=== PATIENT | male | born 2000 | race Caucasian/White ===

== ENCOUNTER → 2023-03-24 | Outpatient (REF) | payer MEDICARE, BC, SELFPAY | LOC: DHSLP | PROVIDERS: ATTENDING PHYSICIAN Internal Medicine | DX: G47.30 Sleep apnea, unspecified (principal); R06.83 Snoring | CPT/HCPCS: 95800 ==

== ENCOUNTER 2023-12-08 10:52 | Emergency (ER) | payer BC, MEDICARE, SELFPAY ==
[2023-12-08 11:13] VITALS: BP 156/87
[2023-12-08 11:20] VITALS: BMI 32.5
--- NOTE | 2023-12-08 11:31 | ED.GENMED ---
History of Present Illness
General
Chief Complaint: Headache
Source: patient
Time Seen by Provider: 12/08/23 11:22
History of Present Illness
History of Present Illness:
23-year-old male with past medical history of autism, presenting to the emergency department for evaluation asthma, hypertension of right-sided temporal headache x 2 weeks, waxing and waning during the 2 weeks, today seemed a little bit worse
prompting him to come to the ER for further evaluation. States he last took ibuprofen a few days ago which did not help. Denies any fevers or URI like symptoms, visual disturbances, focal weakness or numbness or any henderson. Family history is
noncontributory for any acute neurologic events, brain masses or malignancies. He has no other concerns. 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
Past History
Past History
ED Past Medical History: Asthma, HTN and Other (Autism)
ED Past Surgical History: None
Social History
Tobacco: Non-smoker
Alcohol: None
Drug: None
Personal: Single
Living: with family
Employment: Employed
Review of Systems
Review of Systems
All Other Systems: ROS reviewed and negative except as documented in HPI and ROS
Phy Exam
Physical Exam
Physical Exam:
GENERAL: Alert , in no apparent distress
EYE: conjunctiva clear, pupils 4 mm bilateral
Head: Normocephalic atraumatic, no focal temporal artery tenderness
NECK: Supple,
ENT: mmm.
LUNGS: no acute respiratory distress, clear to auscultation
Heart: Regular rate and rhythm
NEUROLOGICAL: Alert and oriented
SKIN: Warm and dry, skin intact.
MUSCULOSKELETAL: well perfused.
PSYCH: Normal and appropriate interaction.
Scores
Heart Failure Risk
Heart Failure Risk Score: Not Applicable
Heart Score for Chest Pain Patients
STEMI patient?: Not applicable
Withdrawal Assessment of Alcohol
Withdrawal Assessment Completed?: Not applicable
Course
Orders/Labs/Results
Orders:
Orders
12/08/23 11:29
CT Head W/o Iv Contrast Urgent
Comment:
Reason For Exam: right sided temporal headache x 2 weeks
Dexamethasone Sod Phosphate [Decadron] 10 mg IV NOW STA
Ketorolac [Toradol] 30 mg IV NOW STA
Vital Signs
Initial and Last Documented VS:
Initial Vital Signs
Temp Pulse Resp BP Pulse Ox
98.4 F 103 18 156/87 96
12/08/23 11:13 12/08/23 11:13 12/08/23 11:13 12/08/23 11:13 12/08/23 11:13
Last Documented Vital Signs
Temp Pulse Resp BP Pulse Ox
98.4 F 103 18 156/87 96
12/08/23 11:13 12/08/23 11:13 12/08/23 11:13 12/08/23 11:13 12/08/23 11:13
MDM/Problems Addressed
Differential Diagnosis Includes:
Tension headache, migraine headache, less concern for intracranial bleed or malignancy, I did also consider giant cell arteritis however given age and symptoms I am not suspicious for this as a diagnosis
MDM/Problems Addressed:
23-year-old male presenting emergency department for evaluation of the right headache x 2 weeks. Slightly worse today prompting him to come to the ER. Did not take anything for pain today. Overall there is no acute neurologic system patient is
otherwise well-appearing. Patient was hoping for a CT scan to ensure no acute intracranial pathologies which I do think is reasonable. Will also treat with Toradol and Decadron. Reassessment following.
*Radiology
Radiology exam reviewed: radiology read reviewed
*Pulse Oximetry
Patient hypoxic: no
*Critical Care Note
Total Time (30-74mins, 75-104mins- exclusive of procedures): Not Applicable
Patient Management
Escalation/DeEscalation of care consider admission/obs:
Patients CT scan without any acute pathologies. Headache improved with medications. Stable for discharge home and aware of return precautions to the ER
ED Attending Note
-
Portions of this chart may have been created with voice recognition software.� Occasional wrong word or��sound alike� substitutions may have occurred due to the inherent limitations of voice recognition software.
Discharge Plan
Departure
Patient Disposition: Home (Routine Discharge)
Date of Disposition: 12/08/23
Time of Disposition: 12:34
Patient with high blood pressure during this ER visit?: Yes
Discharge Problem:
Headache
Instructions: Headache, Adult (DC)
Prescriptions:
No Action
lamotrigine [Lamictal] 150 mg Tablet
150 mg PO DAILY
quetiapine [Seroquel] 300 mg Tablet
300 mg PO HS
Izabella 60 mg Capsule
180 mg PO DAILY
clonidine HCl 0.2 mg Tablet
0.2 mg PO HS
budesonide-formoterol [Symbicort] 160-4.5 mcg/actuation Hfa Aerosol Inhaler
1 puff INHALATION ONCE
Referrals:
Alejandra Bauer MD [Family Provider] -
Interventions
Interventions:
*Risk Screen - Suicide Last Done: 12/08/23 11:13
*General Assessment Last Done: 12/08/23 11:13
*Neglect/Abuse Screening Last Done: 12/08/23 11:13
ED- Fall Risk Assessment Last Done: 12/08/23 11:25
*Nursing Disposition Last Done: 12/08/23 12:38
ED- Neurological Assessment Last Done: 12/08/23 11:20
Discharge Date and Time
Discharge Date/Time: 12/08/23 12:39
Print Language: AUSTRALIAN
[2023-12-08] MEDS: DECADRON 10 MG IV (11:41)
[2023-12-08] MEDS: TORADOL 30 MG IV (11:41)
== END 2023-12-08 12:39 | disposition home or self-care (01) ==
LOC: EMR 10:52
PROVIDERS: EMERGENCY PHYSICIAN Emergency Medicine; FAMILY PHYSICIAN Internal Medicine
DX: R51.9 Headache, unspecified (principal); F84.0 Autistic disorder; J45.909 Unspecified asthma, uncomplicated; I10 Essential (primary) hypertension
CPT/HCPCS: 99284; 96374; 96375; 70450

== ENCOUNTER → 2023-12-28 16:27 | Outpatient (REF) | payer BC, MEDICARE, SELFPAY | LOC: RAD 16:27 | PROVIDERS: ATTENDING PHYSICIAN Internal Medicine | DX: M54.2 Cervicalgia (principal) | CPT/HCPCS: 72040 ==

== ENCOUNTER → 2024-04-21 16:37 | Outpatient (REF) | payer BC, MEDICARE, SELFPAY ==
[2024-04-21 17:08] LABS: % Basophils 0.7 % (0-2); % Eosinophils 2.8 % (0-6); % Immature Granulocytes 0.5 % (0-0.5); % Lymphocytes 25.3 % (20.5-51.1); % Monocytes 7.9 % (1.7-9.3); % Neutrophils 62.8 % (42.2-75.2); Absolute Basophils 0.1 10^3/uL (0-0.2); Absolute Eosinophils 0.4 10^3/uL (0-0.7); Absolute Immature Granulocytes 0.1 10^3/uL (0-0.05); Absolute Lymphocytes 3.4 10^3/uL (1.2-3.4); Absolute Monocytes 1.1 10^3/uL (0.1-0.6); Absolute Neutrophils 8.5 10^3/uL (1.4-6.5); Hematocrit 46.3 % (39.0-52.0); Hemoglobin 15.9 g/dL (13.0-18.0); Mean Corp Hgb Conc. 34.3 g/dL (33.0-37.0); Mean Corpuscular Volume 87.4 fL (80.0-94.0); Mean Platelet Volume 10.4 fL (7.4-10.4); Nucleated Red Blood Cells % 0 % (-); Platelet Count 347 10^3/uL (130-400); Red Cell Dist. Width 12.7 % (11.5-14.5); White Blood Cell Count 13.5 10^3/uL (4.8-10.8)
[2024-04-21 17:20] LABS: ALT (SGPT) 30 U/L (0-50); AST (SGOT) 26 U/L (17-59); Alkaline Phosphatase 91 U/L (38-126); Blood Urea Nitrogen 18 mg/dl (9-20); Carbon Dioxide 27 mmol/L (22-30); Chloride 99 mmol/L (98-107); Glucose 86 mg/dl (70-99); Potassium 4.8 mmol/L (3.5-5.1); Sodium 141 mmol/L (135-145); Total Bilirubin 0.2 mg/dl (0.2-1.3); Total Protein 7.6 g/dl (6.3-8.2); eGFR > 60.00
[2024-04-21 17:53] LABS: Monotest Positive (Negative)
== END ==
LOC: REG 16:37
PROVIDERS: ATTENDING PHYSICIAN Hospitalist
DX: B34.9 Viral infection, unspecified (principal)
CPT/HCPCS: 36415; 80053; 85025; 86308; 87502

== ENCOUNTER 2024-05-10 11:02 | Inpatient (IN) | payer BC, MEDICARE, SELFPAY ==
[2024-05-10 00:53] VITALS: BP 152/97
[2024-05-10] MEDS: ZOFRAN ODT (ORALLY DISINTEGRATING) 4 MG PO (01:04)
[2024-05-10 01:41] LABS: Hematocrit 47.4 % (39.0-52.0); Hemoglobin 16.1 g/dL (13.0-18.0); Mean Corpuscular Hgb 29.1 pg (27.0-31.0); Mean Corpuscular Volume 85.6 fL (80.0-94.0); Mean Platelet Volume 9.9 fL (7.4-10.4); Platelet Count 351 10^3/uL (130-400); Red Blood Cell Count 5.54 10^6/uL (4.70-6.10); Red Cell Dist. Width 12.8 % (11.5-14.5); White Blood Cell Count 28.1 10^3/uL (4.8-10.8)
[2024-05-10 01:49] LABS: ALT (SGPT) 29 U/L (0-50); AST (SGOT) 24 U/L (17-59); Albumin 5.1 g/dl (3.5-5.0); Alkaline Phosphatase 88 U/L (38-126); Blood Urea Nitrogen 18 mg/dl (9-20); Calcium 9.8 mg/dl (8.4-10.2); Carbon Dioxide 20 mmol/L (22-30); Chloride 105 mmol/L (98-107); Glucose 141 mg/dl (70-99); Potassium 4.2 mmol/L (3.5-5.1); Sodium 142 mmol/L (135-145); Total Bilirubin 0.9 mg/dl (0.2-1.3); Total Protein 7.8 g/dl (6.3-8.2); eGFR > 60.00
[2024-05-10 02:24] LABS: % Basophils 0.2 % (0-2); % Eosinophils 0.1 % (0-6); % Immature Granulocytes 0.7 % (0-0.5); % Lymphocytes 2.2 % (20.5-51.1); % Monocytes 6.6 % (1.7-9.3); % Neutrophils 90.2 % (42.2-75.2); Absolute Basophils 0.1 10^3/uL (0-0.2); Absolute Immature Granulocytes 0.2 10^3/uL (0-0.05); Absolute Lymphocytes 0.6 10^3/uL (1.2-3.4); Absolute Monocytes 1.9 10^3/uL (0.1-0.6); Absolute Neutrophils 25.3 10^3/uL (1.4-6.5); Nucleated Red Blood Cells % 0 % (-)
[2024-05-10 03:06] VITALS: BMI 32.9
--- NOTE | 2024-05-10 04:04 | ED.GENMED ---
History of Present Illness
<JUVENTINO Esqueda - Last Filed: 05/10/24 04:18>
General
Chief Complaint: Abdominal Symptoms
Source: patient
Time Seen by Provider: 05/10/24 04:01
Nursing documentation reviewed up to this point in time: agreed with
History of Present Illness
History of Present Illness:
Pt is a 23 yo M who presents to the emergency department for N/V/D and abdominal pain x 4-5 hours. Pt states that the symptoms began suddenly. He states that he has been unable to keep any liquid or food down since the symptoms began. He states that
the abdominal pain is located across the middle of his stomach and that it is sharp and non-radiating. Pt also admits to having a mild headache in the front of his head that is worse when he has vomiting episodes. Pt reports having chills and
feeling hot, he states that his temperature at home was normal. Pt states that he took ibuprofen before coming to the ED. He states that it helped when he took it but the pain is there when the medicine wore off. Pt denies fever, shortness of
breath, hematemesis, hematochezia, cough.
Pt states that 2 days ago he was around someone with the norovirus.
Past History
<JUVENTINO Esqueda - Last Filed: 05/10/24 04:18>
Past History
ED Past Medical History: Asthma, HTN and Other (Autism)
ED Past Surgical History: None
Social History
Tobacco: Non-smoker
Alcohol: None
Drug: None
Personal: Single
Living: with family
Employment: Employed
Review of Systems
<JUVENTINO Esqueda - Last Filed: 05/10/24 04:18>
Review of Systems
Allergies reviewed?: Yes
Constitutional: Reports chills
EENT: Reports no symptoms
Respiratory: Reports no symptoms
Cardiac: Reports no symptoms
ABD/GI: Reports abdominal pain, nausea, vomiting and diarrhea
: Reports no symptoms
Neurological: Reports headache
Phy Exam
<Sona Duncan [facility] [[email or web address]] - Last Filed: 05/10/24 04:18>
General Physical Exam
General Presentation: well appearing and no apparent distress
General age: appears stated age
General Skin: warm
General Habitus: normal
General Mental: alert
General Hydration: appears well hydrated
Cardiovascular Exam
Cardiovascular Exam: regular rate/rhythm
Pulmonary Exam
Pulmonary Exam: lungs clear
Gastrointestinal Exam
Gastrointestinal Exam: normal bowel sounds, soft and non distended
Palpation: left upper quadrant: Minimal tenderness, left lower quadrant: Minimal tenderness, right upper quadrant: Minimal tenderness and right lower quadrant: Minimal tenderness
Course
<Sona Duncan [facility] [[email or web address]] - Last Filed: 05/10/24 04:18>
Orders/Labs/Results
Orders:
Orders
05/10/24 01:02
Ondansetron Orally Disint [Zofran Odt (Orally Disintegrating)] 4 mg .ROUTE .STK-MED ONE
05/10/24 01:04
Ondansetron Orally Disint [Zofran Odt (Orally Disintegrating)] 4 mg PO NOW STA
05/10/24 01:24
CBC/With Diff [Complete Blood Count/With Diff] Urgent
CMP [Comprehensive Metabolic Panel] Urgent
05/10/24 04:36
0.9% Sodium Chloride 1000 ml [Nss] 1,000 ml IV BOLUS
Ondansetron Injectable [Zofran] 4 mg IV NOW STA
05/10/24 04:56
0.9% Sodium Chloride 1000 ml [Nss] 1,000 ml IV BOLUS
Ondansetron Injectable [Zofran] 4 mg IV NOW STA
05/10/24 04:57
Norovirus by PCR Urgent
RUPALI Source: Feces/Stool
Specimen Description:
05/10/24 05:06
Electrocardiogram (*1) Urgent
Reason for Study: Chest Pain
EKG- Treatment ONCE
Abnormal Lab Results
05/10/24
01:24
WBC 28.1 H 10^3/uL
(4.8-10.8)
Abs Immat Gran (auto) 0.2 H 10^3/uL
(0-0.05)
Absolute Neuts (auto) 25.3 H 10^3/uL
(1.4-6.5)
Absolute Lymphs (auto) 0.6 L 10^3/uL
(1.2-3.4)
Absolute Monos (auto) 1.9 H 10^3/uL
(0.1-0.6)
Immature Gran % 0.7 H %
(0-0.5)
Neutrophils % 90.2 H %
(42.2-75.2)
Lymphocytes % 2.2 L %
(20.5-51.1)
Carbon Dioxide 20 L mmol/L
(22-30)
Glucose 141 H mg/dl
(70-99)
Albumin 5.1 H g/dl
(3.5-5.0)
05/10/24 01:24
05/10/24 01:24
Vital Signs
Initial and Last Documented VS:
Initial Vital Signs
Temp Pulse Resp BP Pulse Ox
98.9 F 117 18 152/97 96
05/10/24 00:53 05/10/24 00:53 05/10/24 00:53 05/10/24 00:53 05/10/24 00:53
Last Documented Vital Signs
Temp Pulse Resp BP Pulse Ox
98.9 F 117 18 152/97 96
05/10/24 00:53 05/10/24 00:53 05/10/24 00:53 05/10/24 00:53 05/10/24 00:53
<Rashel Méndez, DO - Last Filed: 05/10/24 05:08>
Orders/Labs/Results
Orders:
Orders
05/10/24 01:02
Ondansetron Orally Disint [Zofran Odt (Orally Disintegrating)] 4 mg .ROUTE .STK-MED ONE
05/10/24 01:04
Ondansetron Orally Disint [Zofran Odt (Orally Disintegrating)] 4 mg PO NOW STA
05/10/24 01:24
CBC/With Diff [Complete Blood Count/With Diff] Urgent
CMP [Comprehensive Metabolic Panel] Urgent
05/10/24 04:36
0.9% Sodium Chloride 1000 ml [Nss] 1,000 ml IV BOLUS
Ondansetron Injectable [Zofran] 4 mg IV NOW STA
05/10/24 04:56
0.9% Sodium Chloride 1000 ml [Nss] 1,000 ml IV BOLUS
Ondansetron Injectable [Zofran] 4 mg IV NOW STA
05/10/24 04:57
Norovirus by PCR Urgent
RUPALI Source: Feces/Stool
Specimen Description:
05/10/24 05:06
Electrocardiogram (*1) Urgent
Reason for Study: Chest Pain
EKG- Treatment ONCE
Abnormal Lab Results
05/10/24
01:24
WBC 28.1 H 10^3/uL
(4.8-10.8)
Abs Immat Gran (auto) 0.2 H 10^3/uL
(0-0.05)
Absolute Neuts (auto) 25.3 H 10^3/uL
(1.4-6.5)
Absolute Lymphs (auto) 0.6 L 10^3/uL
(1.2-3.4)
Absolute Monos (auto) 1.9 H 10^3/uL
(0.1-0.6)
Immature Gran % 0.7 H %
(0-0.5)
Neutrophils % 90.2 H %
(42.2-75.2)
Lymphocytes % 2.2 L %
(20.5-51.1)
Carbon Dioxide 20 L mmol/L
(22-30)
Glucose 141 H mg/dl
(70-99)
Albumin 5.1 H g/dl
(3.5-5.0)
05/10/24 01:24
05/10/24 01:24
Vital Signs
Initial and Last Documented VS:
Initial Vital Signs
Temp Pulse Resp BP Pulse Ox
98.9 F 117 18 152/97 96
05/10/24 00:53 05/10/24 00:53 05/10/24 00:53 05/10/24 00:53 05/10/24 00:53
Last Documented Vital Signs
Temp Pulse Resp BP Pulse Ox
98.9 F 117 18 152/97 96
05/10/24 00:53 05/10/24 00:53 05/10/24 00:53 05/10/24 00:53 05/10/24 00:53
<JUVENTINO Esqueda - Last Filed: 05/10/24 04:18>
MDM/Problems Addressed
Differential Diagnosis Includes:
Viral gastroenteritis
<JUVENTINO Esqueda - Last Filed: 05/10/24 04:18>
*Critical Care Note
Total Time (30-74mins, 75-104mins- exclusive of procedures): Not Applicable
ED Attending Note
<JUVENTINO Esqueda - Last Filed: 05/10/24 04:18>
-
Portions of this chart may have been created with voice recognition software.� Occasional wrong word or��sound alike� substitutions may have occurred due to the inherent limitations of voice recognition software.
<Rashel Méndez, DO - Last Filed: 05/10/24 05:08>
ED Attending Note
Patient seen and examined by attending physician: Yes
I performed the substantive portion of visit, reviewed & personally made and approve the management plan that is documented in note by myself or KALLIE.: Yes
ED Attending Note:
23-year-old male presents to the emergency department with nausea vomiting diarrhea for the last 5 hours. He is also reports severe abdominal pain. He has not been able to keep anything down since his symptoms began. He works in environmental
services here at the hospital and states that he was exposed to several patients with norovirus. Patient has been having chills. He took ibuprofen before coming to the emergency department. He states that he has been retching and having mid
abdominal pain. He feels dehydrated and has chills though when he took his temperature it was normal. Patient was seen in conjunction with the PA student. I have reviewed and agree with the history and treatment plan presented. On my independent
physical exam, patient is awake, alert, and oriented x3 moderate acute distress. Diffuse abdominal pain throughout all quadrants. Hyperactive bowel sounds throughout. Skin is diaphoretic.
Discharge Plan
Departure
Patient Disposition: Admit
Date of Disposition: 05/10/24
Time of Disposition: 05:08
Admit to: Med/Surg
Presentation/result/management discussed w/ accepting MD/DO: Hospitalist
Discharge Problem:
Nausea vomiting and diarrhea, Abdominal pain
Prescriptions:
No Action
lamotrigine [Lamictal] 150 mg Tablet
150 mg PO DAILY
quetiapine [Seroquel] 300 mg Tablet
300 mg PO HS
Izabella 60 mg Capsule
180 mg PO DAILY
clonidine HCl 0.2 mg Tablet
0.2 mg PO HS
budesonide-formoterol [Symbicort] 160-4.5 mcg/actuation Hfa Aerosol Inhaler
1 puff INHALATION ONCE
Referrals:
Minerva Aguilar MD [Family Provider] -
Interventions
Interventions:
*Risk Screen - Suicide Last Done: 05/10/24 00:53
*General Assessment Last Done: 05/10/24 00:53
*ED COVID-19 Vaccine History Last Done: 05/10/24 00:53
Discharge Date and Time
Print Language: EQUATORIAL GUINEAN
[2024-05-10] MEDS: NSS 1000 IV (05:21)
[2024-05-10] MEDS: ZOFRAN 4 MG IV ×2 (05:22→21:40)
--- NOTE | 2024-05-10 06:00 | HPS.HSE ---
Family Physician
-
Family Physician: Minerva Aguilar MD
Chief Complaint
-
Nausea vomiting and diarrhea
History of Present Illness
This is a 23-year-old male with past medical history of asthma presenting to the emergency department with abdominal pain, nausea vomiting and diarrhea that started suddenly today.
Patient reported that for 5 hours ago he developed sharp nonradiating epigastric abdominal pain, then nausea and vomiting. He reports this vomited several times since then. He has had several bouts of diarrhea which were nonbloody. Denies melena.
Reports feeling chills and having headaches myalgias. He has not been able to tolerate p.o. He took ibuprofen prior to coming to the emergency department. He reports that he was exposed to a room where patient had norovirus about 2 days ago.
In the ED she was afebrile, blood pressure was 150/90 and he was tachycardic to 117. Labs are notable for a white count of 28.1, electrolytes BUN/creatinine were within normal limits. LFTs are within normal limits.
Medical History
Past Medical History
Past Medical History: Reports Psychiatric
Past Surgical History: Reports Other
Social History
Tobacco: Non-smoker
Alcohol: None
Drug: None
Personal: Single
Living: With Family
Employment: Employed
Family History
Family History: Not pertinent
Allergies / Home Medications
Allergies reflects when Allergies were last updated in [facility].
Home Medications with original date entered in [facility]
Allergy/Medication List:
Allergies
Allergy/AdvReac Type Severity Reaction Status Date / Time
No Known Allergies Allergy Verified 05/10/24 00:52
Home Medications
budesonide-formoterol HFA 160 mcg-4.5 mcg/actuation aerosol inhaler (Symbicort) 1 puff inhalation ONCE 12/08/23
clonidine HCl 0.2 mg tablet 0.2 mg PO HS 12/08/23
fexofenadine 60 mg capsule 180 mg PO DAILY 12/08/23
lamotrigine 150 mg tablet (Lamictal) 150 mg PO DAILY 12/08/23
quetiapine 300 mg tablet (Seroquel) 300 mg PO HS 12/08/23
Review of Systems
-
History Source: Patient
Constitutional: Reports Chills
EENT: Reports No Symptoms
Respiratory: Reports No Symptoms
Cardiac: Reports No Symptoms
Abdomen/GI: Reports Abdominal Pain, Nausea, Vomiting and Diarrhea
: Reports No Symptoms
Musculoskeletal: Reports No Symptoms
Skin: Reports No Symptoms
Neurological: Reports No Symptoms
Endocrine: Reports No Symptoms
Hematologic/Lymphatic: Reports No Symptoms
Psych: Reports No Symptoms
Physical Exam
Vital Signs
Vital Signs
Temp Pulse Resp BP Pulse Ox
98.9 F 117 18 152/97 96
05/10/24 00:53 05/10/24 00:53 05/10/24 00:53 05/10/24 00:53 05/10/24 00:53
Physical Exam
General: Well Developed, Well Nourished, No Apparent Distress and Comfortable
HEENT: NormoCephalic, Anicteric, Moist mucous membranes and Atraumatic
Respiratory: Clear
Cardiac: S1/S2 and Tachycardia
Breast: Deferred by me
GI: Soft, Non Tender, Non Distended and Normal Bowel Sounds
Rectal: Deferred by Provider
Genito-urinary: Deferred by me
Musculoskeletal: No Clubbing, No Cyanosis and No Edema
Skin: Warm
Neuro: AO x 3
Hematologic/Lymphatic: No Lymphadenopathy
Psych: Calm
Laboratory Results
-
05/10/24 01:24
05/10/24 01:24
Laboratory Results
Total Bilirubin 0.9 mg/dl (0.2-1.3) 05/10/24 01:24
AST 24 U/L (17-59) 05/10/24 01:24
ALT 29 U/L (0-50) 05/10/24 01:24
Alkaline Phosphatase 88 U/L (38-126) 05/10/24 01:24
Data Reviewed
-
Lab Data: Labs Reviewed by me
Old Records: Reviewed
Impression/Plan
-
IMPRESSION:
23 y.o with abdominal pain, nausea, vomiting and diarrhea. Recent exposure to norovirus. Leukocytosis on labs. Otherewise non-toxic appearing. Not tolerating po after initial treatment in ED and on numerous psych meds.
PLAN:
1. Acute gastroenteritis suspected 2/2 norovirus infection
- admit to obs
- check norovirus
- diet as tolerated
- IV fluids for now
- antiemetics and pain control
- consider antidiarrheal if persistent
2. Psych
- continue clonidine 0.2 hs, lamictal 200 hs, zoloft 50hs, seroquel 400 hs
3. Asthma
- symbicort
- prn albuterol
DVT PPX - SCD
[2024-05-10 07:27] VITALS: BP 127/72
[2024-05-10] MEDS: SYMBICORT 160/4.5 MCG INHALER 2 PUFF INH (08:33)
[2024-05-10] MEDS: LR 1000 IV (08:44)
--- NOTE | 2024-05-10 10:56 | W.PN.HOSP.TC ---
Today's Communication/Plan
-
See plan
Assessment / Plan
Assessment / Plan
Impression:
Presentation with acute onset of abdominal pain, nausea, vomiting and severe diarrhea.
Acute gastroenteritis
Other conditions:
Asthma without exacerbation.
Autism
Plan:
Acute onset of nausea vomiting, abdominal pain and severe diarrhea.
Leukocytosis.
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 difficile/norovirus (patient works in the hospital)
Afebrile hemodynamically stable, nontoxic-appearing
Benign abdominal examination.
Reports improvement since admission
Check stool for C. difficile, norovirus, stool cultures.
Follow-up WBC closely, if rising, would consider abdominal imaging with CT scan.
Clear liquid diet.
Monitor closely off antibiotics (procalcitonin undetectable)
Psych
- continue clonidine 0.2 hs, lamictal 200 hs, zoloft 50hs, seroquel 400 hs
3 Asthma stable respiratory status
- symbicort
- prn albuterol
Anticipated Discharge: 24 - 48 hours
Subjective/Interval History
-
Date of Service: May 10, 2024
Objective Data
-
Labs:
Laboratory Results
05/10/24 05/10/24
01:24 10:52
WBC 28.1 H Pending
Hgb 16.1 Pending
Hct 47.4 Pending
Plt Count 351 Pending
Sodium 142 Pending
Potassium 4.2 Pending
Chloride 105 Pending
Carbon Dioxide 20 L Pending
BUN 18 Pending
Creatinine 0.7 Pending
Glucose 141 H Pending
Calcium 9.8 Pending
Total Bilirubin 0.9
AST 24
ALT 29
Alkaline Phosphatase 88
Vital Signs:
Vital Signs
Temp Pulse Resp BP Pulse Ox
98.2 F 107 16 127/72 97
05/10/24 07:27 05/10/24 07:27 05/10/24 07:27 05/10/24 07:27 05/10/24 07:27
Physical Exam
-
General: Well Developed and No Apparent Distress
HEENT: Normocephalic, Atraumatic and Moist Mucous Membranes
Respiratory: Clear to Auscultation
Cardiac: Regular Rhythm and S1/S2; Negative Murmur, Rub or Gallop
GI: Soft, Nontender, Nondistended and Normal Bowel Sounds; Negative Organomegaly
Rectal: Deferred by Provider
Musculoskeletal: No Clubbing, No Cyanosis and No Edema
Skin: Negative Rash
Neuro: Nonfocal/Grossly Intact
[2024-05-10 11:07] LABS: % Basophils 0.2 % (0-2); % Immature Granulocytes 0.5 % (0-0.5); % Lymphocytes 6.7 % (20.5-51.1); % Monocytes 10.1 % (1.7-9.3); % Neutrophils 82.5 % (42.2-75.2); Absolute Immature Granulocytes 0.1 10^3/uL (0-0.05); Absolute Lymphocytes 1.3 10^3/uL (1.2-3.4); Absolute Neutrophils 16.4 10^3/uL (1.4-6.5); Hematocrit 41.7 % (39.0-52.0); Hemoglobin 14.5 g/dL (13.0-18.0); Mean Corp Hgb Conc. 34.8 g/dL (33.0-37.0); Mean Corpuscular Hgb 30.1 pg (27.0-31.0); Mean Corpuscular Volume 86.5 fL (80.0-94.0); Mean Platelet Volume 9.8 fL (7.4-10.4); Nucleated Red Blood Cells % 0 % (-); Platelet Count 301 10^3/uL (130-400); Red Blood Cell Count 4.82 10^6/uL (4.70-6.10); Red Cell Dist. Width 13.1 % (11.5-14.5); White Blood Cell Count 19.9 10^3/uL (4.8-10.8)
[2024-05-10 11:38] LABS: Blood Urea Nitrogen 16 mg/dl (9-20); Carbon Dioxide 24 mmol/L (22-30); Chloride 105 mmol/L (98-107); Estimated Creatinine Clearance > 125 ml/min; Glucose 106 mg/dl (70-99); Sodium 139 mmol/L (135-145); eGFR > 60.00
[2024-05-10 16:25] VITALS: BMI 32.8
[2024-05-10 16:47] VITALS: BP 134/72
--- NOTE | 2024-05-10 16:48 | TRANSFER ---
Pt transferred from ED to room 425 at 1630. Pt walked from stretcher to bed, vitals taken and admission/assessment complete by this RN. Pt on room air, oriented to room, call cardenas within reach, and mom at bedside.
[2024-05-10] MEDS: SEROQUEL 400 MG PO (21:17)
[2024-05-10] MEDS: LAMICTAL 200 MG PO (21:18)
[2024-05-10] MEDS: CATAPRES 0.2 MG PO (21:20)
[2024-05-10 23:00] VITALS: BP 133/69
[2024-05-11] MEDS: SYMBICORT 160/4.5 MCG INHALER 2 PUFF INH (08:23)
[2024-05-11 08:49] LABS: % Basophils 0.3 % (0-2); % Eosinophils 1.5 % (0-6); % Immature Granulocytes 0.4 % (0-0.5); % Lymphocytes 18.1 % (20.5-51.1); % Monocytes 16.6 % (1.7-9.3); % Neutrophils 63.1 % (42.2-75.2); Absolute Eosinophils 0.2 10^3/uL (0-0.7); Absolute Lymphocytes 2.1 10^3/uL (1.2-3.4); Absolute Monocytes 1.9 10^3/uL (0.1-0.6); Absolute Neutrophils 7.2 10^3/uL (1.4-6.5); Hematocrit 43.4 % (39.0-52.0); Mean Corp Hgb Conc. 32.3 g/dL (33.0-37.0); Mean Corpuscular Hgb 29.1 pg (27.0-31.0); Mean Corpuscular Volume 90.2 fL (80.0-94.0); Mean Platelet Volume 10.5 fL (7.4-10.4); Nucleated Red Blood Cells % 0 % (-); Platelet Count 294 10^3/uL (130-400); Red Blood Cell Count 4.81 10^6/uL (4.70-6.10); Red Cell Dist. Width 13.3 % (11.5-14.5); White Blood Cell Count 11.4 10^3/uL (4.8-10.8)
[2024-05-11 09:19] LABS: Blood Urea Nitrogen 14 mg/dl (9-20); Calcium 9.3 mg/dl (8.4-10.2); Carbon Dioxide 29 mmol/L (22-30); Chloride 104 mmol/L (98-107); Estimated Creatinine Clearance > 125 ml/min; Glucose 83 mg/dl (70-99); Potassium 4.4 mmol/L (3.5-5.1); Sodium 141 mmol/L (135-145); eGFR > 60.00
[2024-05-11] MEDS: ZOFRAN 4 MG IV (09:43)
--- NOTE | 2024-05-11 11:17 | CM ---
CM reviewed chart, patient seen bedside. Patient is employee of . Patient resides with his mother and father in a two story home, is independent with ADLs/IADLs. Patient confirms PCP Minerva Aguilar, pharmacy [facility] [place]. Patient denies needs from
CM. CM will continue to follow for all discharge planning needs.
Plan; home with family, no needs.
--- NOTE | 2024-05-11 13:32 | W.DS.TRANS ---
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
-
Discharge Instructions:
Discharge Diagnosis/Procedures Infectious gastroenteritis
Diet Regular
Instructions:
Stand-Alone Forms: Return to Work
Changes to Home Medications: No
Discharge Medications:
DC Medications w/original date entered in [facility]
budesonide-formoterol HFA 160 mcg-4.5 mcg/actuation aerosol inhaler (Symbicort) 1 puff inhalation R DAILY PRN sob 12/08/23
clonidine HCl 0.2 mg tablet 0.2 mg PO HS 12/08/23
fexofenadine 180 mg tablet 180 mg PO HS 05/10/24
lamotrigine 200 mg tablet 200 mg PO HS 05/10/24
montelukast 10 mg tablet 10 mg PO HS 05/10/24
quetiapine 200 mg tablet 400 mg PO HS 05/10/24
sertraline 50 mg tablet 50 mg PO HS 05/10/24
Home Medication Changes
Pending Results: No
[2024-05-11 14:39] VITALS: BP 130/68
== END 2024-05-11 15:56 | disposition home or self-care (01) | DRG 392 ==
LOC: 4 WEST ACU 11:02
PROVIDERS: Emergency Medicine; ADMITTING PHYSICIAN Internal Medicine; ATTENDING PHYSICIAN Internal Medicine; EMERGENCY PHYSICIAN Student in an Organized Health Care Education/Training Program; FAMILY PHYSICIAN Hospitalist
DX: A08.11 Acute gastroenteropathy due to Norwalk agent (principal); F84.0 Autistic disorder; J45.909 Unspecified asthma, uncomplicated
CPT/HCPCS: 80048; 80053; 85025; 87324; 87449; 87798; 93005; 94640; 96361; 96374; 99284

== ENCOUNTER → 2025-03-27 12:01 | Outpatient (REF) | payer BC, MEDICARE, SELFPAY | LOC: RAD 12:01 | PROVIDERS: ATTENDING PHYSICIAN Hospitalist | DX: J18.9 Pneumonia, unspecified organism (principal) | CPT/HCPCS: 71046 ==

== ENCOUNTER → 2025-04-30 16:54 | Outpatient (REF) | payer BC, MEDICARE, SELFPAY | LOC: REG 16:54 | PROVIDERS: ATTENDING PHYSICIAN Hospitalist | DX: M79.10 Myalgia, unspecified site (principal) | CPT/HCPCS: 36415; 82550; 86618 ==